=== PATIENT | male | born 1985 | race Caucasian/White ===

== ENCOUNTER → 2022-09-17 | Outpatient (CLI) | payer OTHER ==
[~2022-09-17] MED LIST: PROHANCE 279.3MG/ML 15ML VIAL ONE; PROHANCE 279.3MG/ML 5ML VIAL ONE
== END ==
LOC: M PLAIMG 07:52
PROVIDERS: ATTEND Physician Assistant
DX: N41.1 Chronic prostatitis (principal)
CPT/HCPCS: 72197; A9576